=== PATIENT | female | born 1960 | race Caucasian/White ===

== ENCOUNTER 2016-11-06 04:18 | Inpatient (IN) | payer OTHER ==
[~2016-11-06] VITALS: Ht 165.1 cm; Wt 86.2 kg
[~2016-11-06 04:18] MED LIST: SEROQUEL200 M1 PO; ULTRAM50 M1 PO; WELLBUTRIN SR150 M1 PO
--- NOTE | 2016-11-06 09:55 | Admission Core Measures ---
Admission Meds I reviewed the following Meds: Current Medications Sig/Jeet Start time Last Medication Dose Stop Time Status Admin Acetaminophen 975 MG ONCE 11/06 0000 NR (Tylenol) 11/06 2358 Bupropion HCl 150 MG BID 11/06 1000 UNVr (Wellbutrin SR) Cefazolin Sodium 2,000 MG ONCE 11/06 0000 NR (Kefzol-Ancef Inj) 11/06 2358 Oxycodone HCl 10 MG ONCE 11/06 NR (Roxicodone) 11/06 2358 Quetiapine Fumarate 200 MG QPM 11/06 2199 UNVr (Seroquel) Acute Coronary Syndrome Inclusion Criteria ACS Diagnosis No Inpatient Core Measures LDL Reminder: If No, please order W/I first 24hr of stay Congestive Heart Failure Inclusion Criteria CHF Diagnosis No Cerebrovascular accident Inclusion Criteria CVA/TIA Diagnosis No Inpatient Core Measures Bedside Swallow Eval Reminder: If BSE failed, place ST order Antithrombotic Reminder: Order Antithrombotic Medication by end of day 2 Antithrombotic Reminder: Document Reason Antithrombotic Not ordered by end of day 2 AFIB/Flutter Reminder: If Present, add to problem list AFIB/Flutter Reminder: Order Anticoag Medication for pts with AFIB/Flutter Atherosclerosis Reminder: If Present, add to problem list LDL Reminder: If No, please order W/I first 24hr of stay PT Order Reminder: If No, please order Venous thromboembolism Inpatient Core Measures VTE Risk Factors: Age > 40, Surgery VTE Prophylaxis Ordered Inpt Mech & Pharm No Mech VTE prophylaxis d/t No contraindications No VTE Pharm Prophylaxis d/t No contraindications Inclusion Criteria - Per Current guidelines, there needs to be overlap - treatment for the first 5 days of Warfarin therapy. - Parenteral Anticoagulation (IV or SC) needs to be - given along with Warfarin therapy. VTE Diagnosis No VTE Type NONE VTE Confirmed by (Test) NONE Problem List As ranked by this Provider includes Assessment & Plan 1. S/P total hip arthroplasty HOME MEDS Home Med List Bupropion HCl (Wellbutrin Sr) 150 MG TABLET.ER 1 TAB PO BID DEPRESSION ( Reported) Quetiapine Fumarate (Seroquel) 200 MG TABLET 1 TAB PO QPM DEPRESSION ( Reported) Tramadol HCl (Ultram) 50 MG TABLET 1 TAB PO PRN PAIN (Reported)
--- NOTE | 2016-11-06 09:57 | Surg Short-stay <48hrs Dis Sum ---
Visit Information Visit Dates Admission Date: 11/06/16 Discharge Date: 11/08/16 Surgical Short Stay DC Summary Admission Diagnosis: Hip pain Final Diagnosis: s/p left renee Procedure(s): Left total hip replacement, see op report Summary/Significant Findings: Pt underwent left total hip replacement by Dr Walsh. She was brought to the PACU in stable condition. Over the next two days she worked with PT and she was able to void spontaneously. She had some pain management issues and it was noted that she had a history of hep C as well as a recent admission for colitis and therefore she wasn't able to take tylenol or toradol. She seemed to have a reaction postoperatively to IV morphine which was noted to be an erythema at the IV site as well as itching, therefore all morphine containing products were discontinued including MS contin. She was managed in house with po and IV dilaudid for breakthrough. She was cleared by PT for discharge and deemed stable for discharge home with services. Condition at Discharge: good Discharge Disposition: home health services Discharge instructions provided to patient/family: Yes Post discharge follow-up plan: Keep scheduled appointment, call sooner if needed.
[2016-11-06] MEDS ORDERED: COLACE100 M1 PO (09:59)
[2016-11-06] MEDS ORDERED: MS CONTIN15 M2 PO (09:59)
[2016-11-06] MEDS ORDERED: ASPIRIN EC325 M2 PO (09:59)
[2016-11-06] MEDS ORDERED: DILAUDID2 M1 PO (09:59)
[2016-11-06] MEDS ORDERED: MIRALAX17 G1 PO (09:59)
--- NOTE | 2016-11-06 10:01 | Patient Discharge Instructions ---
Discharge Instructions General Discharge Information You were seen/treated for: hip pain You had these procedures: total hip replacement Watch for these problems: temp>100, increased redness or drainage of wounds, No bath, but you may shower: Yes Other wound care: Clean, dry dressing change daily Special Instructions: See pre printed sheet Diet Continue normal diet: Yes Activity Activity Self Limited: Yes Activity Limited to: Weight bear as tolerated Acute Coronary Syndrome Inclusion Criteria At DC or during hospital stay patient has or had the following: ACS DIAGNOSIS No Discharge Core Measures Meds if any: Prescribed or Continued at Discharge Meds if any: NOT Prescribed or Continued at Discharge Congestive Heart Failure Inclusion Criteria At DC or during hospital stay patient has or had the following: CHF DIAGNOSIS No Discharge Core Measures Meds if any: Prescribed or Continued at Discharge Meds if any: NOT Prescribed or Continued at Discharge Cerebrovascular accident Inclusion Criteria At DC or during hospital stay patient has or had the following: CVA/TIA Diagnosis No Discharge Core Measures Meds if any: Prescribed or Continued at Discharge Meds if any: NOT Prescribed or Continued at Discharge Venous thromboembolism Inclusion Criteria VTE Diagnosis No VTE Type NONE VTE Confirmed by (Test) NONE Discharge Core Measures - Per Current guidelines, there needs to be overlap - treatment for the first 5 days of Warfarin therapy. - If discharged on Warfarin prior to 5 days of - overlap therapy, the patient will need to be - assessed for post discharge needs including - *Post discharge parental anticoagulation - *Warfarin and/or parental anticoagulation education - *Follow up date to check INR post discharge At least 5 days overlap therapy as Inpatient No Meds if any: Prescribed or Continued at Discharge Note: Overlap Therapy is Warfarin and Anticoagulant Meds if any: NOT Prescribed or Continued at Discharge
--- NOTE | 2016-11-06 10:19 | RADIOLOGY REPORT ---
EXAMINATION: XR HIP, LEFT CLINICAL INFORMATION: Status post left total hip replacement. COMPARISON: None TECHNIQUE: AP and crosstable lateral views of the left hip. FINDINGS: Left total hip arthroplasty hardware is in place. The hardware is in satisfactory position. No evidence of from associated fractures. Post surgical changes of soft tissue edema and soft tissue air are seen in the left gluteal region and proximal thigh. IMPRESSION: Satisfactory positioning of the left total hip arthroplasty hardware, with expected postsurgical soft tissue changes.
[2016-11-06 12:00] VITALS: BP 132/78
--- NOTE | 2016-11-06 13:43 | NUR ---
PT ARRIVED TO UNIT FROM PACU ALERT AND ORIETNED X3 ON RA, AMBULATED WITH ASSISTANCE FROM PT FROM STRETCHER IN HALLWAY TO CHAIR. PT HAS PIV #20 TO LW PATENT WITH D5 1/2NS RUNNING AT 100. THIS COST AND SALES RECORD SUPERVISOR ELEVATED LEGS OF PATIENT AND PROVIDED ICE TO HIP. DRG TO L HIP HAS SCANT AMT DIME SIZED BLOOD AT PROXIMAL END. ALPS APPLIED, TEDS ORDERED. VSS WNL.ORIENTED TO ROOM CALL ROWLEY BED CONTROLS. PT WOULD LIKE TO REMAIN IN CHAIR FOR LUNCH THEN WILL BE ASSISTED BACK TO BED
--- NOTE | 2016-11-06 14:08 | PN- Orthopedic ---
Subjective Subjective: Post op check Awake, alert, oob in chair eating lunch Pain well controlled at this time Ambulated with PT in room without difficulty Has not voided yet Objective Vital Signs and I&Os Vital Signs Date Time Temp Pulse Resp B/P Pulse O2 O2 Flow FiO2 Ox Delivery Rate 11/06 1200 97.3 86 16 132/78 100 Room Air Intake & Output 11/06 1600 11/06 0800 11/06 0000 11/05 1600 11/05 0800 11/05 0000 Intake Total Output Total Balance Patient 190 lb Weight Physical Exam: afebrile, vss General: alert and oriented times three Chest: clear anteriorly bilaterally, RRR Abd: soft, good bs Ext: warm, no edema, no calf tenderness Wound: dressed, dry, mild erythema at dressing Assessment/Plan Assessment/Plan 56 yo female s/p R THR pain management asa 325mg po bid for dvt ppx ambulate with PT - wbat discharge planning 24-48 hrs Core Measures/Miscellaneous Venous Thromboembolism VTE Risk Factors: Age > 40, Surgery VTE Contraindications: No Contraindications VTE Prophylaxis Ordered Inpt: Mech & Pharm VTE Diagnosis: No VTE Type: NONE VTE Confirmed by (Test): NONE Beta Gema Is Beta Gema a Home Med? No Antibiotics Is Patient on Antibiotics? Yes (post op 24 hrs)
[2016-11-06 14:14] VITALS: BP 120/60
--- NOTE | 2016-11-06 14:32 | Operative Report ---
Operative/Inv Procedure Report Surgery Date: 11/06/16 Name of Procedure: Left total hip replacement Pre-Operative Diagnosis: Primary left hip DJD Post-Operative Diagnosis: Same Estimated Blood Loss: 250 Surgeon/Doll Eye Setter: CRISTA SHAIKH,JOE Patel Anesthesia: block Operative/Procedure Note Note: Description of Procedure: The patient was taken to the operating room and positively identified. After induction of spinal anesthesia and administration of appropriate pre-operative antibiotics, the patient was positioned supine on the operating room table and all bony prominences were well padded. After performing a surgical timeout, the left lower extremity was prepped and draped in the usual sterile fashion. A direct anterior approach was made to the left hip. The incision was carried sharply through superficial soft tissues to the level of the fascia. Meticulous hemostasis was maintained with Bovie electocautery. The fascia over the tensor fascia lexus muscle was opened sharply and the interval between the TFL and the sartorius was entered bluntly taking care to stay lateral to the lateral femoral cutaneous nerve. Retractors were placed around the femoral neck and the pericapsular fat was identified. The ascending branches of the lateral femoral circumflex vessels were identified and carefully coagulated. The pericapsular fat and anterior capsule were then resected. A napkin ring osteotomy was performed and the femoral head was removed without difficulty. Attention was then turned to the acetabulum. After appropriate placement of retractors, the acetabulum was exposed. Soft tissue was cleaned from the acetabular margin and notch. Overhanging osteophytes were removed and the teardrop was exposed. The acetabulum was then sequentially reamed to accept a 54 mm Kasbeer Tritanium hemispherical solid back shell. This was impacted into place in the appropriate position and fitted with a 36 mm Trident X3 zero degree polyethylene insert. Attention was then turned to the femur. After performing the appropriate ligament releases, the proximal femur was exposed. It was then sequentially broached to accept a size 4 Kasbeer accolade 2 stem. This was trialed for leg length and stability. The trial component was removed and the final component was impacted into place. The trunnion was carefully cleaned and fit with a 36 mm, - 5 Biolox delta ceramic femoral head. The hip was reduced and put through a full range of motion and found to be stable. The articular space was then irrigated with sterile saline. The periarticular soft tissues were infilitrated with Marcaine. The fascial layer was closed with interrupted #1 vicryl suture and the skin was re-approximated with interrupted 2 -0 vicryl. The skin was closed with a running 3-0 V-Lock suture. Steri-strips and a sterile dressing were applied. The patient was awakened and taken to the recovery room in satisfactory condition.
[2016-11-06 16:00] VITALS: BP 132/72
[2016-11-06 18:34] VITALS: BP 134/68
[2016-11-06 22:09] VITALS: BP 100/60
[2016-11-07 01:55] VITALS: BP 90/60
[2016-11-07 06:17] VITALS: BP 92/56
[2016-11-07 08:14] LABS: ABSOLUTE BASOPHIL COUNT 0 /CUMM (0.0-0.2); ABSOLUTE EOSINOPHIL COUNT 0.1 /CUMM (0.0-0.7); ABSOLUTE GRANULOCYTE CT 8.8 /CUMM (1.4-6.5); ABSOLUTE MONOCYTE COUNT 0.7 /CUMM (0.10-0.60); BASOPHIL % 0.3 % (0.0-2.0); EOSINOPHIL % 0.9 % (0-5); GRANULOCYTE % 75.2 % (42.2-75.2); HEMATOCRIT 32.9 % (37-47); MEAN CORPUSCULAR HGB 30.6 PG (27.0-31.0); MEAN CORPUSCULAR HGB CONC 34.3 G/DL (33.0-37.0); MEAN PLATELET VOLUME 8.4 FL (7.4-10.4); PLATELET COUNT 225 /CUMM (130-400); RBC DISTRIBUTION WIDTH 13.1 % (11.5-14.5); RED BLOOD CELL CT 3.69 /CUMM (4.20-5.40); WHITE BLOOD CELL COUNT 11.7 /CUMM (4.8-10.8)
--- NOTE | 2016-11-07 09:14 | PN- Orthopedic ---
Subjective Subjective: POD#1 S/P LEFT OBED 6/10 PAIN CANNOT TAKE MORPHINE OR TORADOL DENIES CP, SOB, NO N+V WITH DIET Objective Vital Signs and I&Os Vital Signs Date Time Temp Pulse Resp B/P Pulse O2 O2 Flow FiO2 Ox Delivery Rate 11/07 0617 97.9 55 20 92/56 93 Room Air 11/07 0155 98.1 55 20 90/60 94 Room Air 11/06 2209 98.2 58 20 100/60 96 11/06 1834 97.9 84 18 134/68 100 11/06 1600 97.9 82 16 132/72 100 11/06 1414 98.3 84 20 120/60 94 Room Air 11/06 1200 97.3 86 16 132/78 100 Room Air Intake & Output 11/07 1600 11/07 0800 11/07 0000 11/06 1600 11/06 0800 11/06 0000 Intake Total 240 200 Output Total Balance 240 200 Intake, Oral 240 200 Patient 190 lb Weight Physical Exam: CV: RRR LUNGS: CLEAR ABD: SOFT, +BS EXTa: LEFT THIGH SOFT DISTAL CMS INTACT DRSG DRY Assessment/Plan Assessment/Plan ORHTO STABLE PLAN TITRATE PAIN MEDS WEAN IV PAIN MEDS F/U AM LAB HOME D/C PLANNING CONT OOB WITH PT/STAIRS Core Measures/Miscellaneous Venous Thromboembolism VTE Risk Factors: Age > 40, Surgery VTE Contraindications: No Contraindications VTE Prophylaxis Ordered Inpt: Mech & Pharm VTE Diagnosis: No VTE Type: NONE VTE Confirmed by (Test): NONE Beta Gema Is Beta Gema a Home Med? No Antibiotics Is Patient on Antibiotics? Yes (post op 24 hrs)
--- NOTE | 2016-11-07 10:24 | NUR ---
PT GIVEN 4MG PO DILAUDID VS 2MG IV DILAUDID AT 0635. SURGICAL PA AWARE. PT IN NO DISTRESS AT THIS TIME. WILL MONITOR.
[2016-11-07 14:33] VITALS: BP 122/80
[2016-11-07 18:30] VITALS: BP 118/60
[2016-11-07 22:29] VITALS: BP 118/60
[2016-11-08 06:30] VITALS: BP 132/68
--- NOTE | 2016-11-08 07:26 | PN- Orthopedic ---
Subjective Subjective: pod#2 s/p left renee no major complaints denies cp, sob, no n+v with diet Objective Vital Signs and I&Os Vital Signs Date Time Temp Pulse Resp B/P Pulse O2 O2 Flow FiO2 Ox Delivery Rate 11/08 0630 100.1 90 20 132/68 95 Room Air 11/07 2229 97.9 81 20 118/60 95 Room Air 11/07 1830 97.9 81 20 118/60 95 Room Air 11/07 1433 97.4 62 20 122/80 91 Room Air Intake & Output 11/08 0800 11/08 0000 11/07 1600 11/07 0800 11/07 0000 11/06 1600 Intake Total 200 400 720 240 200 Output Total 400 550 Balance 200 0 170 240 200 Intake, IV 0 Intake, Oral 200 400 720 240 200 Number 0 Bowel Movements Output, Urine 400 550 Patient 190 lb Weight Physical Exam: cv; rrr lungs: clear abd: +bs, sfot ext: drsg changed, wound c/d/i thigh soft no calf tenderness bilat Assessment/Plan Assessment/Plan ortho stable plan cont oob with pt/stairs titrate pain meds home d/c plan Core Measures/Miscellaneous Venous Thromboembolism VTE Risk Factors: Age > 40, Surgery VTE Contraindications: No Contraindications VTE Prophylaxis Ordered Inpt: Mech & Pharm VTE Diagnosis: No VTE Type: NONE VTE Confirmed by (Test): NONE Beta Gema Is Beta Gema a Home Med? No Antibiotics Is Patient on Antibiotics? Yes (post op 24 hrs)
== END 2016-11-08 15:05 | disposition home health service (06) | DRG 470 ==
LOC: ENRESERVTM → ENRESERVDT → SDA 04:18 → ENPENDDIS 04:18 → 2NA 04:18
PROVIDERS: Physician Assistant Surgical; ADMIT Orthopaedic Surgery
PROC: 0SRB04A Replacement of Left Hip Joint with Ceramic on Polyethylene Synthetic Substitute, Uncemented, Open Approach (ICD-10-PCS; principal; 2016-11-06)
DX: M16.12 Unilateral primary osteoarthritis, left hip (principal); F32.9 Major depressive disorder, single episode, unspecified; J44.9 Chronic obstructive pulmonary disease, unspecified; F41.9 Anxiety disorder, unspecified
CPT/HCPCS: 2NASP; 73502-LT; 82436; 88304; 97110-GO; 97116-GO; 97161-GP; 97530-GO; J0690; J0735; J1170; J1200; J1885; J3490; J7042